=== PATIENT | female | born 2000 | race African-American/Black ===

== ENCOUNTER 2021-09-27 10:49 | Outpatient (CLI) | payer MEDICAID ==
[~2021-09-27] VITALS: Ht 172.7 cm; Wt 66.8 kg
--- NOTE | 2021-09-27 11:24 | NUR ---
PT HERE FROM OFFICE PER DR BADILLO WITH A US SHOWING SHORT CERVIX WITH A TWIN IV SITE STARTED AND TOCO ON PER DR BADILLO
--- NOTE | 2021-09-27 11:30 | NUR ---
HERE FROM OFFICE , NOTHING TO EAT TODAY OF 1100 ANEMIA NOT TAKING ANY PNV OR FESO4
[2021-09-27 11:48] VITALS: BP 122/86; PULSE 81; TEMP 98
--- NOTE | 2021-09-27 14:20 | NUR ---
Transferred per [facility] flight team. Verbal report to JOHN Henao, receiving nurse.
== END 2021-09-27 14:20 | disposition short-term general hospital (02) ==
LOC: LDRO 10:49
DX: O26.873 Cervical shortening, third trimester (principal); Z3A.25 25 weeks gestation of pregnancy

== ENCOUNTER 2021-10-13 21:55 | Outpatient (CLI) | payer MEDICAID ==
[~2021-10-13] VITALS: Ht 172.7 cm; Wt 65.5 kg
--- NOTE | 2021-10-13 22:25 | NUR ---
PATIENT SEEN IN OB TRIAGE FOR COMPLAINTS OF BACK PAIN, UTERINE TIGHTENING, AND FREQUENT URINATION. PATIENT ORIENTED TO ROOM AND URINE SAMPLE OBTAINED. VSS. FHT APPROPRITE FOR GESTATIONAL AGE X2, AND MILD IRREGULAR CONTRACTIONS NOTED. MEDICAL HISTORY AND ASSESSMENT OBTAINED AND WNL.
[2021-10-13 22:30] VITALS: BP 117/65; PULSE 98; TEMP 99.1
[2021-10-13 22:52] LABS: COLLECTION METHOD CLEAN CATCH
[2021-10-13 23:00] VITALS: PULSE 92
[2021-10-13 23:06] LABS: MUCOUS Present (NOT PRESENT); PH 7 (5-8); URINE APPEARANCE Clear (CLEAR/HAZY); URINE BACTERIA Rare /hpf (NONE SEEN); URINE BILIRUBIN Negative (NEGATIVE); URINE BLOOD Negative (NEGATIVE); URINE COLOR Yellow (YELLOW); URINE GLUCOSE Negative (NEGATIVE); URINE KETONE Negative (NEGATIVE); URINE LEUKOCYTE ESTERASE 3+ (NEGATIVE); URINE NITRATE Negative (NEGATIVE); URINE PROTEIN(semi-quant) Negative (NEGATIVE)
[2021-10-13 23:25] VITALS: PULSE 92
--- NOTE | 2021-10-13 23:25 | NUR ---
DR. CORONA CALLED ABOUT PATIENT AND INFORMED OF PATIENT COMPLIANTS, UA RESULTS, AND MONITORING INTERPRETATION. ORDERS RECEIVED TO DISCHARGE PATIENT WITH PRECAUTIONS GIVEN DURING DISCHARGE TEACHING.
--- NOTE | 2021-10-13 23:40 | NUR ---
PATIENT DISCHARGED HOME IN STABLE CONDITION. AMBULATORY. VERBALIZED UNDERSTANDING OF LABOR PRECAUTIONS.
== END 2021-10-13 23:40 | disposition home or self-care (01) ==
LOC: LDRO 21:55
PROVIDERS: Obstetrics & Gynecology
DX: Z34.92 Encounter for supervision of normal pregnancy, unspecified, second trimester (principal); Z3A.22 22 weeks gestation of pregnancy

== ENCOUNTER 2021-10-15 08:39 | Outpatient (CLI) | payer MEDICAID ==
[2021-10-15] VITALS (9 sets, daily range): BP systolic 111–126; BP diastolic 61–87; PULSE 86–106; TEMP 98.6
[~2021-10-15] VITALS: Ht 172.7 cm; Wt 65.5 kg
--- NOTE | 2021-10-15 08:45 | NUR ---
0845-G1 22.3 weeek patient with di/di twins to LDR 4 leaking light green fluid. Amnitest swap +, Placed on EFM. FHR tracing for A and B twin 145-155bpm with moderate variability. Patient denies vaginal bleeding but reports mild cramping. Patient reports cerclage in place. Dr. Bolivar updated and requested, see MD notification. 0910-Dr. Bolivar at bedside. IV to left hand.
--- NOTE | 2021-10-15 09:05 | NUR ---
in. Discusses with parents chances of infants surviving, risks involved with delivery. Discussed parents wishes for life saving measures. Parents verbalize they want all measures done to save infants.
[2021-10-15] MEDS ORDERED: TYLENOL 500MG500 MG PO (09:08)
[2021-10-15 09:19] LABS: BASO % 0.2 % (0.0-2.0); EOS % 0.2 % (0.0-4.0); GRAN # 8.4 K/mm3 (1.4-6.5); GRAN % 79.5 % (42.2-75.2); LYMPH # 1.4 K/mm3 (1.2-3.4); LYMPH % 12.8 % (20.0-51.0); MEAN CELL VOLUME 85 fl (80.0-95.0); MEAN CORPUSCULAR HGB CONC 32 g/dl (33.0-37.0); MEAN PLATELET VOLUME 11.2 fl (7.4-10.4); MONO # 0.7 K/mm3 (0.1-0.6); MONO % 6.6 % (1.7-9.3); PLATELET COUNT 270 K/mm3 (130-400); RED BLOOD COUNT 3.24 M/mm3 (4.10-5.30); REDCELL DISTRIBUTION WIDTH-CV 18.2 % (11.5-14.5)
--- NOTE | 2021-10-15 09:28 | NUR ---
Dr. Bolivar at bedside. GBS collected by
[2021-10-15 09:34] LABS: HEMATOCRIT 27.5 % (35.0-45.0); HEMOGLOBIN 8.8 g/dl (12.0-15.0); MEAN CORPUSCULAR HEMOGLOBIN 27 pg (26-32)
--- NOTE | 2021-10-15 09:40 | NUR ---
Leo catheter placed per verbal order.
--- NOTE | 2021-10-15 10:15 | NUR ---
Assumed care of patient from Mandy hinton Rests in bed, alert, spouse at bedside. Denies any pain or discomfort at this time.
--- NOTE | 2021-10-15 10:45 | NUR ---
Spouse came to nurses station. Asks if we could change patients pad. Pad and uderwear changed. Moderate amount of light yellow drainage noted.
--- NOTE | 2021-10-15 11:00 | NUR ---
Rests in bed, alert. Nurses here from [facility]. Report given to them by this nurse. 1135 Dismissed to [place] nurses and behavior analyst in cart, alert, stable.
== END 2021-10-15 11:35 | disposition short-term general hospital (02) ==
LOC: LDRO 08:39
PROVIDERS: Obstetrics & Gynecology
DX: O42.912 Preterm premature rupture of membranes, unspecified as to length of time between rupture and onset of labor, second trimester (principal); Z3A.22 22 weeks gestation of pregnancy
CPT/HCPCS: J0290; J0456; J0702; J7050; J7120